=== PATIENT | female | born 1950 | race Caucasian/White ===

== ENCOUNTER → 2017-10-07 | Outpatient (CLI) | payer MEDICARE, BC ==
[~2017-10-07] MED LIST: ASPI325T6 PO; CARDURA 1MG1 MG PO; CELEBREX 200MG200 MG PO; DEMEROL HYDROCH50 MG PO; HCTZ 25MG25 MG PO; LEXAPRO 10MG10 MG PO; NORCO 325 MG-51 TAB PO; PERCOCET 325 MG1 TA2 PO; PREMARIN2.5 MG PO; TYLENOL 500MG500 MG PO; ZOFRAN 4MG T4 MG/TAB PO
== END ==
LOC: MC.RAD 10:47
DX: Z12.31 Encounter for screening mammogram for malignant neoplasm of breast (principal)

== ENCOUNTER → 2018-04-06 | Outpatient (REF) ==
[2018-04-06 15:24] LABS: THYROID STIMULATING HORMONE 2.35 uIU/mL (0.465-4.680)
== END ==
LOC: ZLAB.WCH 14:29
PROVIDERS: Internal Medicine
DX: Z01.89 Encounter for other specified special examinations (principal)

== ENCOUNTER → 2019-01-08 | Outpatient (CLI) | payer MEDICARE, BC | LOC: MC.RAD 06:56 | DX: Z12.31 Encounter for screening mammogram for malignant neoplasm of breast (principal) ==

== ENCOUNTER → 2020-01-09 | Outpatient (CLI) | payer MEDICARE, BC ==
[2020-01-09 11:13] LABS: BASO % 0.8 % (0.0-2.0); EOS # 0.2 (0.0-0.7); EOS % 5.6 % (0-4.0); GRAN # 2.2 (1.4-6.5); GRAN % 57.1 % (42.2-75.2); LYMPH # 0.8 (1.2-3.4); LYMPH % 20.1 % (20.0-51.0); MEAN CELL VOLUME 91 fl (80.0-100.0); MEAN CORPUSCULAR HGB CONC 31 g/dl (33.0-37.0); MEAN PLATELET VOLUME 11.8 fl (7.4-10.4); MONO # 0.6 (0.1-0.6); MONO % 16.1 % (1.7-9.3); PLATELET COUNT 238 K/mm3 (130-400); RED BLOOD COUNT 3.12 M/mm3 (4.10-5.30); REDCELL DISTRIBUTION WIDTH-CV 13.8 % (11.5-14.5)
[2020-01-09 11:15] LABS: HEMATOCRIT 28.4 % (37.0-47.0); HEMOGLOBIN 8.7 g/dl (12.5-16.0); MEAN CORPUSCULAR HEMOGLOBIN 28 pg (27.0-31.0)
[2020-01-09 12:53] LABS: ERYTHROCYTE SEDIMENTATION RATE 50 mm/hr (0-30)
== END ==
LOC: COL.LAB 10:51
PROVIDERS: Orthopaedic Surgery
DX: M25.551 Pain in right hip (principal)

== ENCOUNTER → 2020-01-16 | Outpatient (CLI) | payer MEDICARE, BC | LOC: COL.RAD 07:48 | DX: M25.551 Pain in right hip (principal) ==

== ENCOUNTER 2020-01-27 13:19 | Emergency (ER) | payer MEDICARE, BC ==
[~2020-01-27] VITALS: Ht 157.5 cm; Wt 62.7 kg
[2020-01-27 13:45] LABS: BASO % 0.7 % (0.0-2.0); EOS # 0.3 (0.0-0.7); EOS % 5.6 % (0-4.0); GRAN % 55.7 % (42.2-75.2); LYMPH % 18.8 % (20.0-51.0); MEAN CELL VOLUME 87 fl (80.0-100.0); MEAN CORPUSCULAR HGB CONC 29 g/dl (33.0-37.0); MEAN PLATELET VOLUME 13.2 fl (7.4-10.4); MONO % 18.8 % (1.7-9.3); PLATELET COUNT 202 K/mm3 (130-400); RED BLOOD COUNT 2.91 M/mm3 (4.10-5.30); REDCELL DISTRIBUTION WIDTH-CV 14.7 % (11.5-14.5)
[2020-01-27] MEDS ORDERED: CARDURA 8MG TAB8 MG PO (13:46)
[2020-01-27 13:49] LABS: HEMATOCRIT 25.2 % (37.0-47.0); HEMOGLOBIN 7.4 g/dl (12.5-16.0); MEAN CORPUSCULAR HEMOGLOBIN 25 pg (27.0-31.0)
[2020-01-27 13:51] LABS: ALANINE AMINOTRANSFERASE 15 U/L (9-52); ALBUMIN 4.4 gm/dL (3.5-5.0); ALKALINE PHOSPHATASE 73 U/L (50-136); ANION GAP 15 mmol/L (7-16); AST,SGOT 23 U/L (15-37); BILIRUBIN,TOTAL 0.3 mg/dL (0.0-1.0); BLOOD UREA NITROGEN 14 mg/dL (7-17); CARBON DIOXIDE 26 mmol/L (22-30); CHLORIDE 101 mmol/L (98-107); CREATININE, serum 0.86 (0.52-1.25); GLUCOSE 111 mg/dL (74-106); MAGNESIUM 1.8 mg/dL (1.6-2.3); POTASSIUM 3.1 mmol/L (3.4-5.0); SODIUM 142 mmol/L (137-145); TOTAL PROTEIN 7.8 gm/dL (6.4-8.2)
[2020-01-27 14:04] LABS: TROPONIN-I < 0.012 ng/mL (0.000-0.035)
[2020-01-27] MEDS ORDERED: FERROUS SU325 MG/TAB PO (14:39)
[2020-01-27 15:07] VITALS: BP 103/64; PULSE 78; TEMP 97.6
== END 2020-01-27 15:07 | disposition home or self-care (01) ==
LOC: COL.ER 13:19
PROVIDERS: Emergency Medicine
DX: I48.92 Unspecified atrial flutter (principal); E87.6 Hypokalemia; D64.9 Anemia, unspecified; I10 Essential (primary) hypertension
CPT/HCPCS: J7030

== ENCOUNTER 2020-02-07 08:44 | Outpatient (CLI) | payer MEDICARE, BC ==
[~2020-02-07] VITALS: Ht 157.5 cm; Wt 63.5 kg
[~2020-02-07 08:44] MED LIST changes: +CARDURA 8MG TAB8 MG PO; +FERROUS SU325 MG/TAB PO; +HCTZ 25MG TAB25 MG PO; -HCTZ 25MG25 MG PO
[2020-02-07 09:53] VITALS: BP 136/73; PULSE 76; TEMP 98
[2020-02-07 10:02] VITALS: BP 114/67; PULSE 73; TEMP 98
[2020-02-07 10:14] VITALS: BP 126/71; PULSE 75; TEMP 98.3
[2020-02-07 10:40] VITALS: BP 134/64; PULSE 71; TEMP 98.6
[2020-02-07 11:10] VITALS: BP 139/71; PULSE 70; TEMP 98.6
[2020-02-07 12:00] VITALS: BP 131/69; PULSE 72; TEMP 97.5
--- NOTE | 2020-02-07 12:28 | NUR ---
Pt tolerated blood transfusion well. She has been ambulatory to br during infusion with steady gait. IV dc'd with cath intact, she is ambulatory to exit with her .
== END 2020-02-07 12:42 | disposition home or self-care (01) ==
LOC: EUO 08:44
DX: I48.91 Unspecified atrial fibrillation (principal); K92.2 Gastrointestinal hemorrhage, unspecified; D50.0 Iron deficiency anemia secondary to blood loss (chronic)
CPT/HCPCS: P9016

== ENCOUNTER 2020-05-17 17:17 | Emergency (ER) | payer MEDICARE, BC ==
[~2020-05-17] VITALS: Ht 157.5 cm; Wt 65.9 kg
[2020-05-17 17:19] VITALS: BP 117/75; TEMP 98.9
[2020-05-17] MEDS ORDERED: PERCOCET 325 MG1 TA2 PO (18:47)
[2020-05-17] MEDS ORDERED: CLEOCIN HC150 MG/CAP PO (18:47)
[2020-05-17] MEDS ORDERED: ZOFRAN 4MG T4 MG/TAB PO (18:47)
[2020-05-17 20:24] VITALS: PULSE 83
== END 2020-05-17 20:30 | disposition home or self-care (01) ==
LOC: COL.ER 17:17
DX: K02.9 Dental caries, unspecified (principal); K12.2 Cellulitis and abscess of mouth
CPT/HCPCS: J0780; J1170; J1885; J2405; J7040

== ENCOUNTER 2020-06-23 07:36 | Day surgery (SDC) | payer MEDICARE, BC ==
[~2020-06-23] VITALS: Ht 157.6 cm; Wt 65.7 kg
[2020-06-23] VITALS (9 sets, daily range): BP systolic 94–131; BP diastolic 58–76; PULSE 60–72; TEMP 97.9
[~2020-06-23 07:36] MED LIST changes: +CLEOCIN HC150 MG/CAP PO
[2020-06-23] MEDS ORDERED: NATURAL IRON65 MG PO (07:52)
[2020-06-23] MEDS ORDERED: EFFEXOR 75M75 MG/TAB PO (07:53)
[2020-06-23 08:30] LABS: HEMOGLOBIN 13.4 g/dl (12.5-16.0); MEAN CELL VOLUME 96 fl (80.0-100.0); MEAN CORPUSCULAR HEMOGLOBIN 33 pg (27.0-31.0); MEAN CORPUSCULAR HGB CONC 34 g/dl (33.0-37.0); MEAN PLATELET VOLUME 11.7 fl (7.4-10.4); PLATELET COUNT 181 K/mm3 (130-400); RED BLOOD COUNT 4.08 M/mm3 (4.10-5.30); REDCELL DISTRIBUTION WIDTH-CV 12.3 % (11.5-14.5)
[2020-06-23 08:33] LABS: INR 1.2 (0.8-3.0)
[2020-06-23 08:36] LABS: PARTIAL THROMBOPLASTIN TIME 36.1 SECONDS (26.0-37.0)
[2020-06-23 08:38] LABS: CALCIUM 9.8 mg/dL (8.4-10.2); CREATININE, serum 0.81 (0.52-1.25); POTASSIUM 3.9 mmol/L (3.4-5.0)
--- NOTE | 2020-06-23 09:43 | NUR ---
SEE MERGE DOCUMENTATION FOR MEDICATION ADMINISTRATION TIMES AND INTRA/POST PROCEDURE SEDATION ASSESSMENTS. RIGHT HAND BARBEAU TEST POSITIVE.
--- NOTE | 2020-06-23 10:09 | NUR ---
Back from [employer] by bed. Report from Kiel DOAN. 12 cc in right Tband. VSS
--- NOTE | 2020-06-23 12:52 | NUR ---
Right Tband deflated of 12 cc air and pressure dressing applied. INT discontinued intact. ambulated to bathroom with steady gait. Discharge instructions given
--- NOTE | 2020-06-23 12:54 | NUR ---
Transferred to private car by neda
== END 2020-06-23 13:49 | disposition home or self-care (01) ==
LOC: COL.CAR 07:36
PROVIDERS: Internal Medicine Cardiovascular Disease
DX: I20.0 Unstable angina (principal); I48.91 Unspecified atrial fibrillation; I48.92 Unspecified atrial flutter; I10 Essential (primary) hypertension; K27.9 Peptic ulcer, site unspecified, unspecified as acute or chronic, without hemorrhage or perforation; D63.8 Anemia in other chronic diseases classified elsewhere; Z88.0 Allergy status to penicillin
CPT/HCPCS: C1769; J1644; J2250; J3010; Q9967

== ENCOUNTER → 2021-02-11 | Outpatient (CLI) | payer MEDICARE, BC ==
[~2021-02-11] MED LIST changes: +EFFEXOR 75M75 MG/TAB PO; +NATURAL IRON65 MG PO
== END ==
LOC: MC.RAD 13:34
DX: Z12.31 Encounter for screening mammogram for malignant neoplasm of breast (principal)

== ENCOUNTER → 2022-07-05 | Outpatient (CLI) | payer MEDICARE, BC | LOC: MC.RAD 08:42 | DX: Z12.31 Encounter for screening mammogram for malignant neoplasm of breast (principal) ==

== ENCOUNTER → 2022-07-16 | Outpatient (CLI) | payer MEDICARE, BC | LOC: COL.LAB 11:56 | DX: N39.0 Urinary tract infection, site not specified (principal) ==

== ENCOUNTER → 2023-09-14 | Outpatient (CLI) | payer MEDICARE, BC | LOC: CANSCHCLI → MC.RAD 07:46 | DX: Z12.31 Encounter for screening mammogram for malignant neoplasm of breast (principal) ==

== ENCOUNTER → 2024-07-24 | Outpatient (CLI) | payer MEDICARE, BC ==
[~2024-07-24] MED LIST changes: +Triamcinolone 40 MG/ML 1 ML VIAL IJ SCH
== END ==
LOC: COL.RAD 12:31
DX: M54.31 Sciatica, right side (principal)
CPT/HCPCS: J0665; J3301

== ENCOUNTER → 2024-08-23 | Outpatient (CLI) | payer MEDICARE, BC ==
[~2024-08-23] MED LIST changes: -Triamcinolone 40 MG/ML 1 ML VIAL IJ SCH
== END ==
LOC: MHCPAIN 12:34
DX: M79.2 Neuralgia and neuritis, unspecified (principal); M70.71 Other bursitis of hip, right hip
CPT/HCPCS: G0463